=== PATIENT | female | born 1985 | race Two or more races ===

== ENCOUNTER → 2017-09-05 | Outpatient (CLI) | payer OTHER ==
--- NOTE | 2017-09-05 12:28 | RAD ---
DATE: 09/04/2017 EXAM: BREAST LEFT, MAMMO GIOVANY DIAG BILAT HISTORY: Left breast lump for the last 2 weeks. COMPARISON: None. This study was interpreted with the benefit of Computerized Aided Detection (CAD). The breast parenchyma is heterogeneously dense, which could reduce sensitivity of mammography. Breast parenchyma level C. FINDINGS: Digital MLO and CC mammograms of both breasts were obtained. Additionally digital breast tomosynthesis images (3D mammography) of both breasts in the MLO and CC projections were performed. This is the patient's first mammogram. A marker was placed in the upper outer quadrant of the left breast in the area where the patient feels palpable abnormality. The breast parenchyma is heterogeneously dense which can obscure a lesion on mammography (breast density code C). No spiculated mass is seen. No malignant appearing calcification or area of architectural distortion is noted. No mammographic abnormality is seen in the area where the patient feels a palpable abnormality. A real-time ultrasound examination of the left breast in the area where the patient feels a palpable abnormality was performed (1 to 2:00 position). No solid or cystic mass is seen within the visualized portions of the left breast by ultrasound. IMPRESSION: BI-RADS Category 1, negative. There is no mammographic evidence of malignancy. Routine screening mammography is recommended for follow-up. BI-RADS CATEGORY: 1 NEGATIVE RECOMMENDED FOLLOW-UP: 12M 12 MONTH FOLLOW-UP PQRS compliance statement: Patient information was entered into a reminder system with a target due date 09/05/2018 for the next mammogram. Mammography is a sensitive method for finding small breast cancers, but it does not detect them all and is not a substitute for careful clinical examination. A negative mammogram does not negate a clinically suspicious finding and should not result in delay in biopsying a clinically suspicious abnormality. "Our facility is accredited by the [employer] Mammography Program."
== END | disposition home or self-care (01) ==
LOC: MAMMO 10:08
PROVIDERS: ATTEND Nurse Practitioner Family
DX: R92.8 Other abnormal and inconclusive findings on diagnostic imaging of breast (principal)
CPT/HCPCS: 76641; G0204; G0279; 77062; 77066

== ENCOUNTER 2017-10-03 11:48 | Emergency (ER) | payer OTHER ==
[~2017-10-03] VITALS: Ht 154.9 cm; Wt 55.3 kg
[2017-10-03 13:40] LABS: BACTERIA,URINE FEW /HPF (0-FEW); BILIRUBIN,URINE NEG (NEG); CLARITY,URINE HAZY; COLOR,URINE YELLOW; GLUCOSE,URINE NEG (NEG); NITRITE,URINE NEG (NEG); SQUAMOUS EPITHELIAL CELL,UR MOD /LPF; UROBILINOGEN,URINE 0.2 mg/dL (0.2 mg/dL)
[2017-10-03 13:43] LABS: BASO # 0.1 x10^3/uL (0.0-0.2); BASO % 1 % (0-3); EOS # 0.2 x10^3/uL (0.0-0.7); EOS % 3 % (0-3); HEMATOCRIT 38.7 % (36.0-47.0); LYMPH # 1.9 x10^3/uL (1.0-4.8); LYMPH % 30 % (24-48); MEAN CORPUSCULAR HEMOGLOBIN 31 pg (25-35); MEAN CORPUSCULAR HGB CONC 34 g/dL (31-37); MEAN CORPUSCULAR VOLUME 91 fL (79-100); MONO # 0.5 x10^3/uL (0.0-1.1); MONO % 8 % (0-9); NEUT # 3.8 x10^3uL (1.8-7.7); NEUT % 58 % (31-73); PLATELET COUNT 240 x10^3/uL (140-400); RED BLOOD COUNT 4.24 x10^6/uL (3.50-5.40); RED CELL DISTRIBUTION WIDTH 14.1 % (11.5-14.5); WHITE BLOOD COUNT 6.5 x10^3/uL (4.0-11.0)
[2017-10-03 13:52] LABS: CALCIUM 9.3 mg/dL (8.5-10.1); CREATININE 0.6 mg/dL (0.6-1.0); DIRECT BILIRUBIN 0.1 mg/dL (0.0-0.2); GFR 115.9; POTASSIUM 3.7 mmol/L (3.5-5.1); TOTAL BILIRUBIN 0.4 mg/dL (0.2-1.0)
--- NOTE | 2017-10-03 14:30 | RAD ---
Ultrasound OB less than 14 weeks with transvaginal 10/03/2017 Clinical indication: Left-sided pain, early . Comparison: None. Technique: Transabdominal and transvaginal images were obtained. Findings: Uterus measures 12.3 x 5.7 x 4.1 cm. Endometrium normal thickness for age measuring 13 mm. No evidence of intrauterine gestational sac. Right ovary measures 3.1 x 1.9 x 1.7 cm with normal color Doppler imaging. Left ovary measures 3.5 x 3.3 x 2.4 cm with normal color Doppler imaging. There is trace pelvic free fluid. Impression: 1. No evidence of intrauterine gestational sac or sonographic evidence of ectopic . Patient's reported beta-HCG is less than 100. Close clinical follow-up with serial beta hCGs is recommended. 2. Trace pelvic free fluid.
--- NOTE | 2017-10-03 14:51 | PHYS DOC ---
General Chief Complaint: FLANK PAIN Stated Complaint: SIDE PAIN Time Seen by MD: 12:07 Source: patient Exam Limitations: no limitations Problems: History of Present Illness Initial Comments Patient is a 32-year-old female who comes to the ED complaining of left sided abdominal pain. Patient states that her last normal period was last week of July, she had a very abnormal menstrual period on September 17 during which she passed a few clots but it was shorter in duration and a week later than normal. She has a vague history of questionable ectopic in the past however she states that it was treated with a pill to "dissolve the "no surgical or ultrasound intervention. Today she began some vaginal spotting not necessarily bleeding and she's had left-sided abdominal cramping home test was negative however in the emergency department urine test is positive. Patient does have history of kidney stones, she states that her current discomfort is different than with prior episodes of kidney stones. ED vital signs are stable Due to patient's history and will obtain ultrasound evaluation to rule out ectopic as well as lab evaluation Timing/Duration: other Severity: moderate Modifying Factors: improves with other Associated Symptoms: other Allergies: Coded Allergies: No Known Drug Allergies (Unverified , 10/03/17) Past Medical History Medical History: no pertinent history Surgical History: noncontributory LMP (Females 10-50): Social History Smoker: non-smoker Alcohol: occasionally Drugs: none Review of Systems Constitutional: denies chills, denies diaphoresis, denies fever, denies malaise Respiratory: denies cough, denies shortness of breath Cardiovascular: denies chest pain, denies palpitations Gastrointestinal: see HPI, denies constipation, denies diarrhea, denies nausea , denies vomiting Genitourinary: denies discharge, denies dysuria, denies frequency, denies hematuria Musculoskeletal: denies back pain, denies joint swelling, denies neck pain Psychiatric/Neurological: denies headache, denies numbness, denies paresthesia Physical Exam General Appearance: WD/WN, no apparent distress Ear, Nose, Throat: hearing grossly normal, normal ENT inspection, normal pharynx Neck: non-tender, supple Respiratory: normal breath sounds, no respiratory distress Gastrointestinal: normal bowel sounds, non tender, soft Back: no CVA tenderness, no vertebral tenderness Extremities: non-tender, normal inspection, no pedal edema Neurologic/Psychiatric: patent drafter II-XII nml as tested, no motor/sensory deficits, alert, normal mood/affect, oriented x 3 Skin: normal color, warm/dry Orders, Labs, Meds PATIENT: MICHAEL MADSEN ACCOUNT: [id number] : 1985 LOCATION: ER AGE: 32 SEX: F EXAM STATUS: REG ER ORD. PHYSICIAN: ANTONIO CRYSTAL DO REASON: LMP 08/14, +preg, L sided pain/bleeding h/o ectopic PROCEDURE: OB <14 WKS W/TV Ultrasound OB less than 14 weeks with transvaginal 10/03/2017 Clinical indication: Left-sided pain, early . Comparison: None. Technique: Transabdominal and transvaginal images were obtained. Findings: Uterus measures 12.3 x 5.7 x 4.1 cm. Endometrium normal thickness for age measuring 13 mm. No evidence of intrauterine gestational sac. Right ovary measures 3.1 x 1.9 x 1.7 cm with normal color Doppler imaging. Left ovary measures 3.5 x 3.3 x 2.4 cm with normal color Doppler imaging. There is trace pelvic free fluid. Impression: 1. No evidence of intrauterine gestational sac or sonographic evidence of ectopic . Patient's reported beta-HCG is less than 100. Close clinical follow-up with serial beta hCGs is recommended. 2. Trace pelvic free fluid. DICTATED AND SIGNED BY: NILSA CORNEJO MD DATE: 10/03/17 1412 CC: BERTHA PRICE RN SURGERY ICU; ANTONIO CRYSTAL DO ~ Beta-HCG 84, otherwise labs are normal I discussed these findings with the patient, and the possibility that she had passed a miscarriage early September when she thought that she was having a late period. I also discussed the possibility of kidney stone with the patient does not wish to wait any longer in the emergency department and refuses further workup. I discussed signs and symptoms to monitor as well as indications for urgent return to the department. I discussed CP/OB follow-up and departure instructions were discussed [id number] are provided in written form. Her questions were answered and she expressed agreement and understanding of plan. Departure Time of Disposition: 14:49 Disposition: HOME, SELF-CARE Diagnosis: probable passed miscarriage Condition: STABLE Patient Instructions: Miscarriage, [id number] Additional Instructions: Please review the patient education materials given by ED staff. Given her history and today's findings it is likely that your last period which was abnormal was a miscarriage. [id number] Tylenol as needed for discomfort. Heating pad to painful areas as needed. Continue vitamins. At this time you have declined further evaluation with a CAT scan to determine whether is a kidney stone. Follow-up with your [facility] Friday for recheck of symptoms and to recheck your hCG. Return to ED with new or changing symptoms. ANTONIO CRYSTAL DO Oct 03, 2017 14:51
[2017-10-03 15:05] VITALS: BP 103/63
== END 2017-10-03 15:08 | disposition home or self-care (01) ==
LOC: ER 11:48
DX: N93.8 Other specified abnormal uterine and vaginal bleeding (principal); R10.9 Unspecified abdominal pain; Z87.442 Personal history of urinary calculi
CPT/HCPCS: 36415; 76801; 76817; 80048; 80076; 81001; 81025; 84702; 85025; 99285-25